=== PATIENT | female | born 1945 ===

== ENCOUNTER → 2018-08-30 20:59 | Outpatient (ROUT) | payer MEDICARE, OTHER, SELFPAY ==
[2018-08-30 22:24] LABS: Ferritin 31.5 ng/mL (11.1-264)
[2018-08-30 22:39] LABS: Vitamin B12 686 pg/mL (239-931)
[2018-08-30 22:44] LABS: Hemoglobin A1C% w Est Avg Glu 5.3 % (4.0-6.0)
== END ==
PROVIDERS: Visit Provider Family Medicine
DX: R73.9 Hyperglycemia, unspecified (principal)
CPT/HCPCS: 36415; 82607; 82728; 83036